=== PATIENT | male | born 1960 | race Caucasian/White ===

== ENCOUNTER 2019-05-09 17:34 | Emergency (ER) | payer OTHER, SELFPAY ==
--- NOTE | ~2019-05-09 | XR_ITS ---
[XR ribs RT 2V w CXR 2V ] INDICATION: Right rib pain TECHNIQUE: Frontal projection of the upper right ribs, frontal projection of the lower right ribs, ob lique projection of all the right ribs, frontal inspiratory chest x-ray for interpretation. FINDINGS: There are no displaced rib fractures identified. There are no soft tissue abnormality see n. There is bibasilar atelectasis. IMPRESSION: 1:No displaced rib fractures. Reviewed, dictated and finalized at location A.
[2019-05-09 19:35] VITALS: BP 153/94; PULSE 53; RESP 20; TEMP 36.5; O2SAT 98
[2019-05-09] MEDS: MORPHINE SULFATE 4 MG/ML INJ IM (20:33)
[2019-05-09] MEDS: CYCLOBENZAPRINE HCL 10 MG TABLET PO (20:34)
--- NOTE | 2019-05-09 20:46 | PC.NURSE ---
morphine given IM in left deltoid
--- NOTE | 2019-05-09 21:14 | ED.BACK ---
HPI - Back Pain/Injury General Chief Complaint: Back Pain/Injury Stated Complaint: back/rib pain Source: patient Mode of arrival: ambulatory Limitations: no limitations History of Present Illness HPI Narrative: 5 days ago when stepping down from a tractor, holding onto a handrail, this patient slipped on the step. He spun around hitting his right hip and ribs against the tractor. Over the ensuing 4 days he has had some stiffness but minor hip and rib pain. Today while getting out of his truck he had acute sharp, intense pain in the right lateral and posterior lower rib region so intense he became nauseated. Since then it has worsened standing up, lessened by not moving. . His baseline pain level is much worse than previously. When exacerbated it is a #9/10. . He denies any injury or pain elsewhere. He has had no hematuria. Related Data Home Medications Medication Instructions Recorded Confirmed allopurinol 100 mg PO DAILY 05/09/19 05/09/19 aspirin [Adult Low Dose Aspirin] 162 mg PO DAILY 05/09/19 05/09/19 lisinopril-hydrochlorothiazide 1 tablet PO DAILY 05/09/19 05/09/19 simvastatin 20 mg PO DAILY 05/09/19 05/09/19 Allergies Allergy/AdvReac Type Severity Reaction Status Date / Time No Known Allergies Allergy Verified 05/09/19 20:13 Review of Systems Constitutional: Constitutional: Reports no additional constitutional complaints Cardiovascular: Cardiovascular: Denies chest pain Respiratory: Comments: pain with deep inspiration Gastrointestinal: Gastrointestinal: Reports no additional gastrointestinal complaints, Denies diarrhea and Denies vomiting Genitourinary: Genitourinary: Denies hematuria Integumentary/Breasts: Skin/Breast: Reports other (bruise right hip region) PMFSH Past Medical History Medical History Gout Hypertension Social History Social History Alcohol intake: current Gender identity (if verbalized by the patient): Male Exam Const: General: cooperative, healthy appearing and other (Sitting on edge of bed, upright in NAD but grimaces and is in obvious pain ) Nutritional Appearance: well nourished Chest: Chest palpation & inspection: normal inspection of the chest and abnormal palpation of chest wall (Tender in region of 8-10th rib, from R ant. ax. line to the paraspinal ms. ) Resp: Effort & Inspection: able to speak in complete sentences and other (breaths about 1/3-1/2 of tidal volume, then jerks from right chest pain. ) Auscultation: clear to auscultation bilaterally Cardio: Rate: regular rate Rhythm: regular rhythm Heart sounds: S1 normal heart sound present and S2 normal heart sound present GI: Inspection: normal to inspection and no abdominal wall ecchymosis GI Palp: No abdominal tenderness, Yes Soft to palpation, No Guarding due to palpation present (GI) and No No hepatosplenomegaly present Back/Spine/Pelvis: Back: back tenderness (very tender in some spots along the right 8-10th rib region) and other Other: Walks his hands up his thighs for support when he stands up secondary to pain. Back/spine/pelvis image: 1. area of rib tenderness 2. bruising but nontender Skin: General skin exam: ecchymosis (right iliac crest, mid-axillary line region; non-tender. ) Course Course Emergency Course: decreased pain after 4 mg MS IM. x-ray results reviewed with patient. Discussed plan of avoiding painful activities, Vital Signs Vital signs: Vital Signs Temperature 36.5 C 05/09/19 19:35 Pulse Rate 53 L 05/09/19 19:35 Respiratory Rate 20 05/09/19 19:35 Blood Pressure 153/94 H 05/09/19 19:35 Pulse Oximetry 98 05/09/19 19:35 Temperature 36.5 C 05/09/19 19:35 Pulse Rate 52 L 05/09/19 21:21 Respiratory Rate 18 05/09/19 21:44 Blood Pressure 145/88 H 05/09/19 21:21 Pulse Oximetry 96 05/09/19 21:21 MDM - Back Pain/Injury MDM Narrative
[2019-05-09 21:21] VITALS: BP 145/88; PULSE 52; RESP 18; O2SAT 96
--- NOTE | 2019-05-09 21:22 | PC.NURSE ---
Dr Valiente at bedside talking with pt and . Pt states pain is slightly improved after meds.
[2019-05-09 21:44] VITALS: RESP 18
== END 2019-05-09 21:45 | disposition home or self-care (01) ==
PROVIDERS: Emergency Provider Family Medicine; PCP Internal Medicine
DX: M62.830 Muscle spasm of back (principal); S70.01XA Contusion of right hip, initial encounter; W22.8XXA Striking against or struck by other objects, initial encounter
CPT/HCPCS: 71045; 71101; 96372; 99283; A9270; J2270

== ENCOUNTER 2020-02-28 10:55 | Outpatient (CLI) | payer OTHER, SELFPAY ==
--- NOTE | ~2020-02-28 | CT_ITS ---
EXAMINATION: CT abdomen pelvis w con INDICATION: Right lower quadrant pain TECHNIQUE: Computed tomographic images of the abdomen and pelvis were obtained after the administrati on of 100 cc of Omnipaque 350 intravenous contrast. The dose-length product (DLP) was 1387.32 mGy-cm. Automated exposure control and iterative reconstruction technique were employed. COMPARISON: None available FINDINGS: The lung bases are clear. The heart size is normal. Cysts of the liver measure up to 4 mm. The spleen, pancreas, gallbladder, and adrenal glands are normal. Hypoattenuating lesions in the kidn eys, measuring up to 6 mm on the right, are too small to characterize but likely represent cysts. The appendix is normal. No pathologically enlarged abdominal or pelvic lymph nodes are identified. There is no free intraperitoneal gas or evidence of bowel obstruction. There is a moderate volume of colon ic stool. IMPRESSION: 1. No CT correlate for the patient's symptoms. Reviewed, dictated and finalized at location A. ER FIELD SERVICE TECHNICIAN
[2020-02-28 11:20] LABS: Estimated Glomerular Filt Rate > 60
== END 2020-02-28 10:56 | disposition home or self-care (01) ==
LOC: CHSIMG 10:57
PROVIDERS: PCP Internal Medicine; Visit Provider Internal Medicine
DX: R10.11 Right upper quadrant pain (principal)
CPT/HCPCS: 74177; Q9965; Q9967

== ENCOUNTER 2021-03-10 08:52 | Outpatient (CLI) | payer OTHER, SELFPAY ==
[2021-03-10 09:06] LABS: Basophils Percent Auto 1.2 % (0.0-1.0); Eosinophils Absolute Auto 0.39 K/mm3 (0.02-0.50); Eosinophils Percent Auto 4.8 % (1.0-6.0); Hematocrit 45.7 % (40.0-54.0); Hemoglobin 15.1 g/dL (14.0-18.0); Immature Granulocyte Absolute 0.03 K/mm3 (0.00-0.00); Immature Granulocyte Percent A 0.4 % (0.0-0.0); Lymphocytes Absolute Auto 3.09 K/mm3 (1.10-4.50); Lymphocytes Percent Auto 37.8 % (18.0-42.0); Mean Corpuscular Volume 90.7 fL (78.0-102.0); Mean Platelet Volume 9.9 fl (8.7-11.0); Monocytes Absolute Auto 0.52 K/mm3 (0.10-0.90); Monocytes Percent Auto 6.4 % (2.0-11.0); Neutrophils Percent Auto 49.4 % (50.0-70.0); Platelet Count Result 307 K/mm3 (150-420); Red Blood Count 5.04 M/mm3 (4.70-6.10); Red Cell Distribution Width 12.3 % (11.6-14.4); White Blood Count 8.2 K/mm3 (4.8-10.8)
[2021-03-10 09:46] LABS: Alanine Aminotransferase 30 U/L (16-63); Albumin Level 3.8 g/dL (3.4-5.0); Alkaline Phosphatase 76 U/L (46-116); Anion Gap 11 mmol/L (8-16); Aspartate Amino Transferase 13 U/L (15-37); Bilirubin,Total 0.6 mg/dL (0.00-1.00); Blood Urea Nitrogen 12 mg/dL (7-18); Calcium 9.1 mg/dL (8.5-10.1); Carbon Dioxide 26 mmol/L (21-32); Chloride 100 mmol/L (98-108); Cholesterol 194 mg/dL (0-200); Estimated Glomerular Filt Rate > 60; Glucose 96 mg/dL (70-99); HDL Direct 59 mg/dL (40-60); LDL Cholesterol Calculated 107 mg/dL (<130); Osmolality Calculated 283 mOsm/kg (285-295); Potassium 4.8 mmol/L (3.5-5.1); Sodium 137 mmol/L (136-145); Total Protein 6.9 g/dL (6.4-8.2); Triglycerides 142 mg/dL (0-150)
== END 2021-03-10 08:53 | disposition home or self-care (01) ==
LOC: CHSLAB 08:55
PROVIDERS: PCP Nurse Practitioner Family; Visit Provider Nurse Practitioner Family
DX: E78.5 Hyperlipidemia, unspecified (principal); I10 Essential (primary) hypertension
CPT/HCPCS: 36415; 80053; 80061; 85025

== ENCOUNTER 2022-09-28 07:04 | Outpatient (CLI) | payer OTHER, SELFPAY ==
[2022-09-28 07:24] LABS: Basophils Absolute Auto 0.08 K/mm3 (0.00-0.10); Basophils Percent Auto 1.3 % (0.0-1.0); Eosinophils Absolute Auto 0.22 K/mm3 (0.02-0.50); Eosinophils Percent Auto 3.5 % (1.0-6.0); Hematocrit 42.8 % (40.0-54.0); Hemoglobin 14.4 g/dL (14.0-18.0); Immature Granulocyte Absolute 0.02 K/mm3 (0.00-0.00); Immature Granulocyte Percent A 0.3 % (0.0-0.0); Lymphocytes Absolute Auto 2.32 K/mm3 (1.10-4.50); Lymphocytes Percent Auto 37.4 % (18.0-42.0); Mean Corpuscular HGB Conc 33.6 g/dL (32.0-36.0); Mean Corpuscular Hemoglobin 30.5 pg (27.0-31.0); Mean Corpuscular Volume 90.7 fL (78.0-102.0); Mean Platelet Volume 9.4 fl (8.7-11.0); Monocytes Percent Auto 6.4 % (2.0-11.0); Neutrophils Absolute Auto 3.2 K/mm3 (1.7-7.2); Neutrophils Percent Auto 51.1 % (50.0-70.0); Platelet Count Result 308 K/mm3 (150-420); Red Blood Count 4.72 M/mm3 (4.70-6.10); Red Cell Distribution Width 12.6 % (11.6-14.4); White Blood Count 6.2 K/mm3 (4.8-10.8)
[2022-09-28 08:05] LABS: Alanine Aminotransferase 25 U/L (16-63); Albumin Level 3.5 g/dL (3.4-5.0); Alkaline Phosphatase 91 U/L (46-116); Anion Gap 9 mmol/L (8-16); Bilirubin,Total 0.6 mg/dL (0.00-1.00); Blood Urea Nitrogen 17 mg/dL (7-18); Carbon Dioxide 27 mmol/L (21-32); Chloride 103 mmol/L (98-108); Cholesterol 178 mg/dL (0-200); Estimated Glomerular Filt Rate > 60; Glucose 108 mg/dL (70-99); HDL Direct 50 mg/dL (40-60); LDL Cholesterol Calculated 87 mg/dL (<130); Osmolality Calculated 290 mOsm/kg (285-295); Potassium 4.9 mmol/L (3.5-5.1); Sodium 139 mmol/L (136-145); Triglycerides 205 mg/dL (0-150); Uric Acid 6.2 mg/dL (3.5-7.2)
[2022-09-28 08:14] LABS: Aspartate Amino Transferase 13 U/L (15-37)
[2022-09-28 16:25] LABS: Hemoglobin A1C 5.3 % (<5.7)
== END 2022-09-28 07:05 | disposition home or self-care (01) ==
LOC: CHSLAB 07:06
PROVIDERS: PCP Family Medicine; Visit Provider Nurse Practitioner Family
DX: I10 Essential (primary) hypertension (principal); M10.9 Gout, unspecified; E78.5 Hyperlipidemia, unspecified; R73.01 Impaired fasting glucose
CPT/HCPCS: 36415; 80053; 80061; 83036; 84550; 85025

== ENCOUNTER 2022-10-12 12:51 | Emergency (ER) | payer OTHER, SELFPAY ==
[2022-10-12] VITALS (11 sets, daily range): BP systolic 128–137; BP diastolic 81–93; PULSE 57–63; RESP 16–20; TEMP 36.7–37; O2SAT 95–100
--- NOTE | ~2022-10-12 | CT_ITS ---
EXAMINATION: CTA brain carotid DATE: 10/12/2022 14:44 INDICATION: Memory loss. Confusion. TECHNIQUE: Computed tomographic angiography (CTA) of the head was performed without and with 100 mL O mnipaque-350 intravenous contrast. CTA of the neck was performed with intravenous contrast. Automated exposure control and iterative reconstruction technique were employed. The dose-length product was 1 910.40 mGy-cm. Maximum intensity projection and volume rendered 3D-reconstructions were created by nona johnson technologist on a separate workstation. COMPARISON: None. FINDINGS: HEAD CTA: There is no intracranial hemorrhage, acute infarction, or abnormal intracranial mass lesion . The ventricles are normal in size. The orbits are normal. There is mild mucosal thickening in the p aranasal sinuses. The mastoid air cells are normal. The external auditory canals are normal. The vert ebral arteries are codominant. There is no significant stenosis of basilar artery or the posterior ce rebral arteries. There is no significant stenosis of intracranial internal carotid arteries or anteri or or middle cerebral arteries. Anterior communicating artery is normal. Right posterior communicatin g artery is normal. A left posterior communicating artery is not identified. There is no aneurysm. NECK CTA: There are no pathologically enlarged lymph nodes. There is no significant stenosis of the v ertebral arteries. There is plaque in the proximal internal carotid arteries. There is 0% stenosis of the proximal right internal carotid artery relative to normal distal artery lumen diameter (NASCET c riteria). There is 0% stenosis of the proximal left internal carotid artery relative to normal distal artery lumen diameter. There is moderate thoracic spondylosis. IMPRESSION: 1. Normal brain. No aneurysm or significant intracranial arterial stenosis. 2. 0% stenosis of the proximal internal carotid arteries relative to normal distal artery lumen diame ters (NASCET criteria). Reviewed, dictated and finalized at location A. IMPRESSION: 1. Normal brain. No aneurysm or significant intracranial arterial stenosis. 2. 0% stenosis of the proximal internal carotid arteries relative to normal dis monica artery lumen diameters (NASCET criteria).
--- NOTE | 2022-10-12 12:58 | ED.GENADULT ---
HPI - General Adult General Chief complaint: Altered Mental Status Stated complaint: high blood pressure Time Seen by Provider: 10/12/22 12:57 Source: patient and RN notes reviewed Mode of arrival: ambulatory Limitations: no limitations History of Present Illness HPI narrative: patient states that he been having some problems with some confusion and memory loss. 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 He had an episode yesterday where apparently someone from the office had noted that something was not right with him at 3:30 a.m. in the afternoon and noted that he should be watched her monitored. Then this morning he got up at 3:00 a.m. and then at 5:00 a.m. he noted the gaps in his memory for the emails and documentation that it being doing. He thought maybe something was wrong with his blood pressure because he has a history of hypertension he went to [facility] in [place] where he was staying and had a workup done. That time his diagnosis was malignant hypertension and altered mental status. He had blood work done and a CT scan done all were negative and he was discharged home. His feels that something still isn't right and she is concerned that he may have had a stroke. He denies any weakness on 1 side of his body or the other he denies any visual problems he denies any difficulty with ambulation. He denies any difficulty with speech although his does note that sometimes it seems like he is trying to find the words to speak. complaint: confusion Onset (ago): hour(s) Severity: mild Associated symptoms: confusion Treatments prior to arrival: none Related Data Allergies Allergy/AdvReac Type Severity Reaction Status Date / Time No Known Allergies Allergy Verified 10/12/22 13:16 Review of Systems Review of Systems: All systems reviewed & are unremarkable except as noted in HPI and below PMFSH Past Medical History Medical History Back muscle spasm Contusion of trunk Gout Hypertension Social History Social History Smoking status: Never smoker Alcohol intake: current Alcohol use details: social Substance use: never Substance use type: does not use Gender identity (if verbalized by the patient): Male Exam Const: General: healthy appearing, no acute distress and alert Nutritional Appearance: well nourished Orientation/consciousness: patient oriented x3 Limitations: no limitations HENMT: Head: normal to inspection Ears: external ears normal Face/Nose/Sinus: Normal external nose present Face and sinus: normal facial exam Mouth: Yes moist mucous membranes Eyes: Conjunctivae: conjunctivae normal Pupils: Equal, round and reactive pupils present EOM: EOMs intact bilaterally Neck: Neck: normal visual inspection Resp: Effort & Inspection: normal respiratory effort Auscultation: clear to auscultation bilaterally Cardio: Rate: regular rate Rhythm: regular rhythm GI: GI Palp: Yes Soft to palpation and No Tenderness to palpation present (GI) Auscultation: normal bowel sounds Back/Spine/Pelvis: Cervical Spine: cervical ROM normal Thoracic/Lumbar Spine: thoraco-lumbar ROM normal Skin: General skin exam: normal color Rashes: no rashes Neuro: General: patient oriented x3, moves all extremities, no focal motor deficits and CN's II-XI intact bilaterally Speech: normal speech Gait exam (Neuro): Normal gait present Motor exam (neuro): 5/5 motor strength present throughout, No No asterixis, fasciculations noted, Normal motor muscle tone present throughout and Motor abnormalities not present Sensory Exam: normal sensation Coordination: [id number] test normal and Normal rapid alternating movements of the distal upper extremity present (Neuro) Extrem:
--- NOTE | 2022-10-12 14:02 | PC.NURSE ---
PT IS IN CT AT THIS TIME. RECORDS WERE OBTAINED FROM [facility]. VSS. WILL CONTINUE TO MONITOR.
== END 2022-10-12 15:10 | disposition home or self-care (01) ==
PROVIDERS: Emergency Provider Emergency Medicine; PCP Family Medicine
DX: G45.9 Transient cerebral ischemic attack, unspecified (principal); I10 Essential (primary) hypertension
CPT/HCPCS: 70496; 70498; 99284; Q9967

== ENCOUNTER 2022-12-06 12:35 | Outpatient (CLI) | payer OTHER, SELFPAY ==
--- NOTE | 2022-12-06 12:39 | ECHO_ITS ---
Patient Info Name: Michael Miller Age: 62 years : 1960 Gender: Male Ht: 72 in Wt: 250 lbs BSA: 2.44 m2 HR: 59 bpm BP: 140 / 90 mmHg Heart Rhythm: Sinus Rhythm Technical Quality: Good Exam Date: 12/06/2022 12:31 PM Exam Location: [facility] Patient Status: Outpatient Admit Date: 12/06/2022 Staff Ordering Physician: Librado Carvalho DO Slackman: Therese Mancilla RDCS Attending Provider: Librado Carvalho DO Referring Physician: Maia JC; Exam Type: CA echo doppler color flow Study Info Indications - Hypertensive emergency Complete two-dimensional, color flow and Doppler transthoracic echocardiogram is performed. Summary 1. Complete two-dimensional, color flow and Doppler transthoracic echocardiogram is performed. 2. Left ventricular chamber dimension is normal. 3. Left ventricular systolic function is normal, estimated at 60-65%. 4. The left ventricular diastolic function is grade I diastolic dysfunction. 5. E/e' 9 is minimally elevated. 6. There is trace mitral valve regurgitation. 7. There is trace tricuspid valve regurgitation. 8. No pulmonary hypertension, estimated pulmonary arterial systolic pressure is 21 mmHg. Left Ventricle E/e' 9 is minimally elevated. Left ventricular chamber dimension is normal. Left ventricular systolic function is normal, estimated at 60-65%. The left ventricular diastolic function is grade I diastolic dysfunction. Right Ventricle Right ventricular systolic function is normal and with normal TAPSE 2.9 cm. Right ventricular chamber dimension is normal. Left Atria Left atrial chamber dimension is normal. Right Atria Right atrial chamber dimension is normal. Aortic Valve The aortic valve is trileaflet. There is no aortic valve stenosis. There is no aortic valve regurgitation. Pulmonic Valve There is no pulmonic regurgitation. Mitral Valve There is no mitral valve stenosis. There is trace mitral valve regurgitation. Tricuspid Valve There is trace tricuspid valve regurgitation. No pulmonary hypertension, estimated pulmonary arterial systolic pressure is 21 mmHg. Pericardium/Pleural There is no pericardial effusion. Inferior Vena Cava Normal inferior vena cava with >50% collapse upon inspiration consistent with normal right atrial pressure, 5 mmHg. Aorta The aortic root size at the sinus of Valsalva is normal. Left Ventricular Outflow Tract Name Value Normal LVOT 2D LVOT Diameter 2.3 cm LVOT Doppler LVOT Peak Velocity 113 cm/s LVOT Peak Gradient 4 mmHg LVOT Mean Gradient 2 mmHg LVOT VTI 32 cm LVOT VTI/AV VTI Ratio 1.0 LVOT Stroke Volume 137 ml Pulmonic Valve Name Value Normal RVOT Doppler RVOT Peak Gradient 2 mmHg PV Doppler
== END 2022-12-06 12:36 | disposition home or self-care (01) ==
LOC: CHSIMG 12:37
PROVIDERS: PCP Family Medicine; Visit Provider Family Medicine
DX: I10 Essential (primary) hypertension (principal); I16.1 Hypertensive emergency
CPT/HCPCS: 93306

== ENCOUNTER 2022-12-10 11:34 | Outpatient (CLI) | payer OTHER, SELFPAY ==
[2022-12-10 11:56] LABS: Basophils Absolute Auto 0.08 K/mm3 (0.00-0.10); Basophils Percent Auto 0.9 % (0.0-1.0); Eosinophils Absolute Auto 0.26 K/mm3 (0.02-0.50); Hematocrit 43.9 % (40.0-54.0); Hemoglobin 14.9 g/dL (14.0-18.0); Immature Granulocyte Absolute 0.03 K/mm3 (0.00-0.00); Immature Granulocyte Percent A 0.4 % (0.0-0.0); Lymphocytes Absolute Auto 2.99 K/mm3 (1.10-4.50); Lymphocytes Percent Auto 34.9 % (18.0-42.0); Mean Corpuscular HGB Conc 33.9 g/dL (32.0-36.0); Mean Corpuscular Hemoglobin 30.7 pg (27.0-31.0); Mean Corpuscular Volume 90.3 fL (78.0-102.0); Mean Platelet Volume 9.5 fl (8.7-11.0); Monocytes Absolute Auto 0.64 K/mm3 (0.10-0.90); Monocytes Percent Auto 7.5 % (2.0-11.0); Neutrophils Absolute Auto 4.6 K/mm3 (1.7-7.2); Neutrophils Percent Auto 53.3 % (50.0-70.0); Platelet Count Result 310 K/mm3 (150-420); Red Blood Count 4.86 M/mm3 (4.70-6.10); Red Cell Distribution Width 12.9 % (11.6-14.4); White Blood Count 8.6 K/mm3 (4.8-10.8)
[2022-12-10 12:22] LABS: Alanine Aminotransferase 40 U/L (16-63); Albumin Level 3.6 g/dL (3.4-5.0); Alkaline Phosphatase 82 U/L (46-116); Anion Gap 9 mmol/L (8-16); Aspartate Amino Transferase 17 U/L (15-37); Bilirubin,Total 0.5 mg/dL (0.00-1.00); Blood Urea Nitrogen 14 mg/dL (7-18); Carbon Dioxide 25 mmol/L (21-32); Chloride 104 mmol/L (98-108); Estimated Glomerular Filt Rate > 60; Glucose 92 mg/dL (70-99); Osmolality Calculated 286 mOsm/kg (285-295); Sodium 138 mmol/L (136-145); Total Protein 6.7 g/dL (6.4-8.2)
[2022-12-10 12:40] LABS: CRP < 0.5 mg/dL (0.0-0.9)
== END 2022-12-10 11:35 | disposition home or self-care (01) ==
LOC: CHSLAB 11:36
PROVIDERS: PCP Family Medicine; Visit Provider Family Medicine
DX: K52.9 Noninfective gastroenteritis and colitis, unspecified (principal)
CPT/HCPCS: 36415; 80053; 85025; 86140

== ENCOUNTER 2022-12-20 07:11 | Outpatient (CLI) | payer OTHER, SELFPAY ==
[2022-12-20 07:20] LABS: Occult Blood Negative (Negative)
[2022-12-26 18:12] LABS: Calprotectin, Stool 370 mcg/g
== END 2022-12-20 07:12 | disposition home or self-care (01) ==
LOC: CHSLAB 07:13
PROVIDERS: PCP Family Medicine; Visit Provider Family Medicine
DX: K52.9 Noninfective gastroenteritis and colitis, unspecified (principal)
CPT/HCPCS: 82272; 83993; 87045; 87324; 87427; 87449; 87493

== ENCOUNTER 2024-01-25 06:59 | Outpatient (CLI) | payer OTHER, SELFPAY ==
[2024-01-25 07:16] LABS: Basophils Absolute Auto 0.07 K/mm3 (0.00-0.10); Basophils Percent Auto 0.8 % (0.0-1.0); Eosinophils Absolute Auto 0.31 K/mm3 (0.02-0.50); Eosinophils Percent Auto 3.7 % (1.0-6.0); Hematocrit 43.3 % (40.0-54.0); Hemoglobin 14.7 g/dL (14.0-18.0); Immature Granulocyte Absolute 0.02 K/mm3 (0.00-0.00); Immature Granulocyte Percent A 0.2 % (0.0-0.0); Lymphocytes Absolute Auto 2.76 K/mm3 (1.10-4.50); Lymphocytes Percent Auto 32.7 % (18.0-42.0); Mean Corpuscular HGB Conc 33.9 g/dL (32-36); Mean Corpuscular Volume 88.4 fL (78.0-102.0); Mean Platelet Volume 9.3 fl (8.7-11.0); Monocytes Absolute Auto 0.64 K/mm3 (0.10-0.90); Monocytes Percent Auto 7.6 % (2.0-11.0); Neutrophils Absolute Auto 4.65 K/mm3 (1.70-7.20); Platelet Count Result 306 K/mm3 (150-420); Red Cell Distribution Width 12.4 % (11.6-14.4); White Blood Count 8.5 K/mm3 (4.8-10.8)
[2024-01-25 08:03] LABS: Alanine Aminotransferase 20 U/L (16-63); Albumin Level 3.6 g/dL (3.4-5.0); Alkaline Phosphatase 86 U/L (46-116); Anion Gap 9 mmol/L (4-12); Aspartate Amino Transferase < 10 U/L (15-37); Bilirubin,Total 0.9 mg/dL (0.00-1.00); Blood Urea Nitrogen 12 mg/dL (7-18); Calcium 9.2 mg/dL (8.5-10.1); Carbon Dioxide 26 mmol/L (21-32); Chloride 101 mmol/L (98-108); Cholesterol 187 mg/dL (0-200); Estimated Glomerular Filt Rate > 60; Glucose 106 mg/dL (70-99); HDL Direct 62 mg/dL (40-60); LDL Cholesterol Calculated 97 mg/dL (<130); Osmolality Calculated 281 mOsm/kg (285-295); Potassium 4.5 mmol/L (3.5-5.1); Sodium 136 mmol/L (136-145); Total Protein 6.7 g/dL (6.4-8.2); Triglycerides 139 mg/dL (0-150); Uric Acid 6.7 mg/dL (3.5-7.2)
[2024-01-25 08:09] LABS: Thyroid Stimulating Hormone Reflex 1.88 u/IU/mL (0.36-3.74)
== END 2024-01-25 07:00 | disposition home or self-care (01) ==
LOC: CHSLAB 07:02
PROVIDERS: PCP Family Medicine; Visit Provider Family Medicine
DX: E03.9 Hypothyroidism, unspecified (principal); I10 Essential (primary) hypertension; M10.9 Gout, unspecified
CPT/HCPCS: 36415; 80053; 80061; 84443; 84550; 85025

== ENCOUNTER 2024-02-27 00:22 | Day surgery (SDC) | payer OTHER, SELFPAY ==
[2024-02-10 10:26] VITALS: BMI 33.2
--- NOTE | 2024-02-27 08:55 | P.PNAN_ITS ---
Anes - Initial Pre Proc Eval Procedure: Operation Date: 02/27/24 10:30 Proposed Procedures p Screening Colonoscopy - Poncho Anderson DO Date/Time: 02/27/24 08:55 Surgeon: Poncho Anderson DO Pre Op Diagnosis: Screening for malignant neoplasm of colon Patient Data Age: 64 Gender: M Height: 1.83 m Weight: 111.2 kg Allergies Allergy/AdvReac Type Severity Reaction Status Date / Time No Known Allergies Allergy Verified 02/27/24 09:09 Home Medications ?Medication ?Instructions ?Recorded ?Confirmed ?Type aspirin 81 mg tablet,delayed See Rx Instructions .Route 12/29/22 02/27/24 Rx release .COMPLEX #90 tabs simvastatin 20 mg tablet See Rx Instructions .Route 01/02/24 02/27/24 Rx .COMPLEX #90 tabs allopurinol 100 mg tablet See Rx Instructions .Route 01/11/24 02/27/24 Rx .COMPLEX #90 tabs amlodipine 5 mg tablet 5 mg PO DAILY #90 tabs 01/13/24 02/27/24 Rx lisinopril 20 See Rx Instructions .Route 01/25/24 02/27/24 Rx mg-hydrochlorothiazide 12.5 mg .COMPLEX #90 tabs tablet Patient hx anesthesia problems: none Family hx anesthesia problems: none Results Review: All pre-operative results and documents have been reviewed as part of the pre-o perative evaluation. [facility] Past Medical History Medical History (Updated 02/27/24 @ 08:56 by Philipp Sherman DO) Hyperlipidemia Hypertension Gout Contusion of trunk Back muscle spasm Social History Social History Smoking status: Never smoker Alcohol intake: current Alcohol use details: social Substance use: never Substance use type: does not use Gender identity (if verbalized by the patient): Male Anes - Eval Final PreProcedure Day of Procedure 02/27/24 08:55 Patient weight: obese Heart: regular rate and rhythm Lungs: clear to auscultation Airway: Mallampati scale class II Neurological: alert and oriented Last oral intake: >/= 8 hours ASA classification: III Emergent: no Anesthetic plan: proceed Anesthesia type and monitoring: general GIVS and standard monitoring Results Review: All pre-operative results and documents have been reviewed as part of the pre- operative evaluation. Informed Consent: The patient's anesthetic plan and its attendant risks and benefits were discussed with the patient/family/POA. Questions were solicited and answers provided to the satisfaction of the patient/family/POA.
[2024-02-27 09:11] VITALS: BP 151/96; PULSE 81; RESP 16; TEMP 36; O2SAT 96
[2024-02-27] MEDS: LACTATED RINGERS 1,000 ML 150 ML IV CONT (09:20)
--- NOTE | 2024-02-27 10:00 | PM.IMHP ---
H&P: HPI History of Present Illness Date/Time: 02/27/24 10:00 Chief Complaint: screening for colorectal cancer Narrative: this is a 64-year-old man who presents for his 1st colonoscopy. He denies any history of hematochezia melena. He denies family history of colon cancer. Review of Systems Review of Systems: All systems reviewed & are unremarkable except as noted in HPI and below Constitutional: Constitutional: Denies chills, Denies fever(s), Denies headache(s) and Denies weight loss Eyes: Eyes: Denies change in vision ENT: Denies dizziness, Denies headache(s), Denies neck mass and Denies throat swelling Cardiovascular: Cardiovascular: Denies chest pain, Denies lightheadedness and Denies dyspnea Respiratory: Respiratory: Denies cough, Denies dyspnea and Denies wheezing Gastrointestinal: Gastrointestinal: Denies abdominal pain, Denies change in bowel habits, Denies nausea and Denies vomiting Genitourinary: Genitourinary: Denies hematuria and Denies dysuria Musculoskeletal: Musculoskeletal: Reports as per HPI Integumentary/Breasts: Skin/Breast: Reports as per HPI Neurologic: Denies dizziness and Denies headache(s) Allergic/Immunologic: Allergic/Immunologic: Denies throat swelling and Denies wheezing PMF Past Medical History Medical History (Updated 02/27/24 @ 08:56 by Philipp Sherman DO) Hyperlipidemia Hypertension Gout Contusion of trunk Back muscle spasm Social History Social History Smoking status: Never smoker Alcohol intake: current Alcohol use details: social Substance use: never Substance use type: does not use Gender identity (if verbalized by the patient): Male Meds Home Medications and Allergies Home Medications ?Medication ?Instructions ?Recorded ?Confirmed ?Type aspirin 81 mg tablet,delayed See Rx Instructions .Route 12/29/22 02/27/24 Rx release .COMPLEX #90 tabs simvastatin 20 mg tablet See Rx Instructions .Route 01/02/24 02/27/24 Rx .COMPLEX #90 tabs allopurinol 100 mg tablet See Rx Instructions .Route 01/11/24 02/27/24 Rx .COMPLEX #90 tabs amlodipine 5 mg tablet 5 mg PO DAILY #90 tabs 11/15/24 12/30/24 Rx lisinopril 20 See Rx Instructions .Route 01/25/24 02/27/24 Rx mg-hydrochlorothiazide 12.5 mg .COMPLEX #90 tabs tablet Allergies Allergy/AdvReac Type Severity Reaction Status Date / Time No Known Allergies Allergy Verified 02/27/24 09:09 Vital Signs Vital Signs - 24 hr 02/27/24 09:11 Temperature 96.8 F L Pulse Rate 81 Respiratory Rate 16 Blood Pressure 151/96 H Pulse Oximetry 96 Oxygen Delivery Room Air Exam Const: General: no acute distress and alert Orientation/consciousness: patient oriented x3 HENMT: Head: normocephalic and atraumatic Ears: hearing grossly normal bilaterally Face/Nose/Sinus: Normal nares present Mouth: Yes Normal oral and palatal mucosa present Eyes: Periorbital: periorbital findings normal Sclera: sclerae normal EOM: EOMs intact bilaterally Neck: Neck: normal visual inspection, no lymphadenopathy and trachea midline Chest: Chest palpation & inspection: normal inspection of the chest Resp: Effort & Inspection: normal respiratory effort Auscultation: clear to auscultation bilaterally Cardio: Jugular venous distension: no JVD Rate: regular rate Rhythm: regular rhythm Heart sounds: S1 normal heart sound present and S2 normal heart sound present Peripheral pulses: Peripheral pulses 2+ throughout GI: Inspection: normal to inspection GI Palp: Yes Soft to palpation, No Tenderness to palpation present (GI), No Guarding due to palpation present (GI) and No Rebound tenderness present Percussion: Yes normal to percussion Auscultation: normal bowel sounds : General: Yes no CVA tenderness Back/Spine/Pelvis: Back: no CVA tenderness Neuro: General: patient oriented x3, no focal motor deficits and CN's II-XI intact bilaterally Cognition (Neuro): normal cognition Speech: normal speech Motor exam (neuro): 5/5 motor strength present throughout Extrem: General: capillary refill normal and no clubbing, cyanosis or edema Assessment and Plan Assessment and plan (1) Screening for malignant neoplasm of colon: Code(s): Z12.11 - Encounter for screening for malignant neoplasm of colon Status: Acute Assessment and Plan: I have recommended colonoscopy. I have discussed the procedure, risks, benefits, and alternatives. Questions were answered. Patient is agreeable to proceed.
[2024-02-27 10:35] VITALS: BP 135/86; PULSE 67; RESP 16; O2SAT 96
[2024-02-27 10:45] VITALS: BP 131/90; PULSE 72; RESP 20; O2SAT 97
[2024-02-27 10:55] VITALS: BP 149/95; PULSE 72; RESP 20; O2SAT 98
== END 2024-02-27 11:04 | disposition home or self-care (01) ==
PROVIDERS: PCP Family Medicine; Visit Provider Surgery
PROC: 0DJD8ZZ Inspection of Lower Intestinal Tract, Via Natural or Artificial Opening Endoscopic (ICD-10-PCS; CPT 45378; principal; 2024-02-27 10:30)
DX: Z12.11 Encounter for screening for malignant neoplasm of colon (principal); D12.5 Benign neoplasm of sigmoid colon; E78.5 Hyperlipidemia, unspecified; I10 Essential (primary) hypertension; E66.9 Obesity, unspecified; Z68.34 Body mass index [BMI] 34.0-34.9, adult; Z79.82 Long term (current) use of aspirin
CPT/HCPCS: 45385; 88305; J2003; J2704; J7120

== ENCOUNTER 2025-01-08 07:02 | Outpatient (CLI) | payer OTHER, SELFPAY ==
[2025-01-08 07:14] LABS: Hematocrit 45.4 % (40.0-54.0); Hemoglobin 14.7 g/dL (14.0-18.0); Immature Granulocyte Percent A 0.2 % (0.0-0.0); Lymphocytes Absolute Auto 2.89 K/mm3 (1.10-4.50); Mean Corpuscular HGB Conc 32.4 g/dL (32-36); Mean Corpuscular Hemoglobin 29.8 pg (27.0-31.0); Mean Corpuscular Volume 91.9 fL (78.0-102.0); Nucleated Red Blood Cells Absolute Auto 0.02 K/mm3 (0.00-0.00); Nucleated Red Blood Cells Perc 0.2 % (0-0.0); Platelet Count Result 349 K/mm3 (150-420); Red Blood Count 4.94 M/mm3 (4.70-6.10); White Blood Count 9.0 K/mm3 (4.8-10.8)
[2025-01-08 07:55] LABS: Alanine Aminotransferase 25 U/L (6-50); Albumin Level 4.7 g/dL (3.5-5.1); Alkaline Phosphatase 80 U/L (38-126); Anion Gap 8 mmol/L (4-12); Aspartate Amino Transferase 24 U/L (17-59); Blood Urea Nitrogen 22 mg/dL (9-20); Calcium 10.0 mg/dL (8.4-10.2); Carbon Dioxide 26 mmol/L (22-30); Chloride 107 mmol/L (98-107); Cholesterol 203 mg/dL (0-200); Estimated Glomerular Filt Rate > 60; Glucose 110 mg/dL (65-110); HDL Direct 66 mg/dL; Osmolality Calculated 296 mOsm/kg (285-295); Potassium 5.2 mmol/L (3.4-5.0); Sodium 141 mmol/L (137-145); Total Protein 7.1 g/dL (6.3-8.2); Triglycerides 186 mg/dL (<150); Uric Acid 7.1 mg/dL (3.5-8.5)
[2025-01-15 13:17] LABS: Bilirubin,Total 0.7 mg/dL (0.2-1.3)
== END 2025-01-08 07:03 | disposition home or self-care (01) ==
LOC: CHSLAB 07:03
PROVIDERS: PCP Family Medicine; Visit Provider Family Medicine
DX: M10.9 Gout, unspecified (principal); E78.5 Hyperlipidemia, unspecified; I10 Essential (primary) hypertension
CPT/HCPCS: 36415; 80053; 80061; 84550; 85025